=== PATIENT | female | born 1970 | race Caucasian/White ===

== ENCOUNTER 2019-04-23 21:58 | Inpatient (IN) | payer OTHER ==
[2019-04-23 22:13] VITALS: BMI 18.3
[2019-04-24] MEDS ORDERED: Ondansetron ODT 4 MG TAB PO PRN (00:31)
[2019-04-24] MEDS ORDERED: Acetaminophen 500 MG TAB PO PRN ×2 (07:15→07:21)
[2019-04-24] MEDS ORDERED: Meloxicam 7.5 MG TAB PO PRN ×2 (07:15→07:22)
[2019-04-24] MEDS ORDERED: ALPRAZolam 0.5 MG TAB PO PRN (07:15)
[2019-04-24] MEDS: Multivit, Therapeutic 1 TAB PO SCH (08:44)
[2019-04-24] MEDS: Gabapentin 400 MG CAP PO SCH ×2 (08:44→15:13)
[2019-04-24] MEDS: Folic Acid 1 MG TAB PO SCH (08:44)
[2019-04-24] MEDS: Thiamine 100 MG TAB PO SCH (08:44)
[2019-04-24] MEDS ORDERED: PARoxetine 20 MG TAB PO SCH ×2 (09:00)
[2019-04-24] MEDS ORDERED: Gabapentin 400 MG CAP PO SCH (09:00)
[2019-04-24] MEDS: ALPRAZolam 0.5 MG TAB PO PRN ×2 (11:06→21:12)
[2019-04-24] MEDS ORDERED: traZODone HCl 50 MG TAB PO SCH (21:00)
[2019-04-24] MEDS: Gabapentin 300 MG CAP PO SCH (21:13)
[2019-04-24] MEDS: traZODone HCl 50 MG TAB PO SCH (21:13)
[2019-04-25 07:32] LABS: #Basophils 0.1 thou/uL (0.0-0.2); #Eosinphils 0.2 thou/uL (0.0-0.7); #Lymphocytes 2.3 thou/uL (1.20-3.40); #Monocytes 0.5 thou/uL (0.11-0.59); #Neutrophils 3.7 thou/uL (1.40-6.50); %Basophils 0.9 % (0.0-1.0); %Eosinophils 2.5 % (0.0-10.0); %Lymphocytes 33.9 % (21.0-51.0); %Monocytes 7.3 % (0.0-10.0); %Neutrophils 55.4 % (42.0-75.0); Hemoglobin 9.8 g/dL (12.0-16.0); Mean Corpuscular Hemoglobin 33.9 pg (27.0-31.0); Mean Corpuscular Volume 99.7 fL (78.0-98.0); Mean Platelet Volume 6.7 fL (7.4-10.4); Platelet Count 202 thou/uL (130-400); RBC Distribution Width 14.6 % (11.5-14.5); Red Blood Cell (RBC) Count 2.88 mill/uL (4.20-5.40); White Blood Cell (WBC) Count 6.7 thou/uL (4.8-10.8)
[2019-04-25 07:46] LABS: ALT (SGPT) 35 U/L (8-55); AST (SGOT) 36 U/L (5-34); Alkaline Phosphatase 102 U/L (40-150); Anion Gap 15 mmol/L (10-20); BUN (Urea Nitrogen) 6 mg/dL (7.0-18.7); Bilirubin, Total 0.3 mg/dL (0.2-1.2); Calc. Creatinine Clearance 84 mL/min (70-130); Calcium 9.3 mg/dL (7.8-10.44); Carbon Dioxide 24 mmol/L (22-29); Chloride 109 mmol/L (98-107); Estimated GFR-MDRD Greater than 90; Glucose 136 mg/dL (70-105); Potassium 4.4 mmol/L (3.5-5.1); Sodium 144 mmol/L (136-145)
[2019-04-25] MEDS: Thiamine 100 MG TAB PO SCH (09:13)
[2019-04-25] MEDS: Multivit, Therapeutic 1 TAB PO SCH (09:13)
[2019-04-25] MEDS: Gabapentin 300 MG CAP PO SCH ×3 (09:13→20:36)
[2019-04-25] MEDS: Folic Acid 1 MG TAB PO SCH (09:13)
[2019-04-25] MEDS: ALPRAZolam 0.5 MG TAB PO PRN ×2 (09:16→18:04)
[2019-04-25] MEDS: traZODone HCl 50 MG TAB PO SCH (20:36)
[2019-04-26] MEDS: Multivit, Therapeutic 1 TAB PO SCH (08:51)
[2019-04-26] MEDS: Folic Acid 1 MG TAB PO SCH (08:51)
[2019-04-26] MEDS: Thiamine 100 MG TAB PO SCH (08:51)
[2019-04-26] MEDS: Gabapentin 300 MG CAP PO SCH ×3 (08:51→20:45)
[2019-04-26] MEDS: ALPRAZolam 0.5 MG TAB PO PRN ×2 (08:55→17:05)
[2019-04-26] MEDS: traZODone HCl 50 MG TAB PO SCH (20:45)
[2019-04-27] MEDS: Gabapentin 300 MG CAP PO SCH ×3 (08:35→20:47)
[2019-04-27] MEDS: Folic Acid 1 MG TAB PO SCH (08:35)
[2019-04-27] MEDS: ALPRAZolam 0.5 MG TAB PO PRN ×2 (08:36→16:37)
[2019-04-27] MEDS: Multivit, Therapeutic 1 TAB PO SCH (08:36)
[2019-04-27] MEDS: Thiamine 100 MG TAB PO SCH (08:36)
[2019-04-27] MEDS: traZODone HCl 50 MG TAB PO SCH (20:48)
[2019-04-28] MEDS: Thiamine 100 MG TAB PO SCH (08:42)
[2019-04-28] MEDS: ALPRAZolam 0.5 MG TAB PO PRN ×2 (08:42→20:52)
[2019-04-28] MEDS: Gabapentin 300 MG CAP PO SCH ×3 (08:42→20:54)
[2019-04-28] MEDS: Folic Acid 1 MG TAB PO SCH (08:43)
[2019-04-28] MEDS: Multivit, Therapeutic 1 TAB PO SCH (08:43)
[2019-04-28] MEDS: traZODone HCl 50 MG TAB PO SCH (20:53)
[2019-04-29 06:49] VITALS: TEMP 97.2
[2019-04-29] MEDS: Multivit, Therapeutic 1 TAB PO SCH (08:43)
[2019-04-29] MEDS: Thiamine 100 MG TAB PO SCH (08:43)
[2019-04-29] MEDS: Folic Acid 1 MG TAB PO SCH (08:43)
[2019-04-29] MEDS: Gabapentin 300 MG CAP PO SCH ×2 (08:44→14:47)
[2019-04-29] MEDS: ALPRAZolam 0.5 MG TAB PO PRN (08:47)
[2019-04-29 11:00] VITALS: BP 118/68
--- NOTE | 2019-04-29 11:50 | HP ---
PRIMARY CARE PHYSICIAN: 1.Dr Davis/ [place]. CONSULTATIONS: 1. GI, Dr. Santos in [place]. 2. Well Drill Operator, Dr. Hernandez in [place]. REASON FOR ADMISSION: General weakness from recent hospitalization for skilled rehab at [facility]. HISTORY OF PRESENT ILLNESS AND HOSPITAL COURSE: Ms. Teague is a 48-year-old female with past medical history of hematochromatosis, myelodysplastic syndrome, who presents to the hospital with complaints of general weakness at [facility] on 2018. The patient reports that she has mainly been staying in bed due to the general weakness. This is associated with poor appetite and inability to get up or walk. Upon presentation in the hospital, the patient was found to have an elevated CK levels up to 1161 with CK-MB of 225 and myoglobin levels greater than 4000. The patient was subsequently admitted for acute rhabdomyolysis. Along with the above presentation, the patient was also reported to have left hand cellulitis, which was treated with IV clindamycin in the hospital as well. 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 She was also diagnosed with alcoholic neuropathy, hypovolemic, hyponatremia, elevated LFTs. Left hand cellulitis, debility with weakness. The patient's CK levels all trended down prior to discharge. LFTs trended down prior to discharge. IV antibiotic was completed with improved left hand swelling, redness, and pain. Interim history:, 3 weeks prior to recent admission, the patient underwent EGD byDr. Santos and was found to have narrowing of the esophagus and underwent esophageal dilatation. She was also treated on Bactrim for UTI that led to C. diff colitis. She did complete her treatment for the C. diff colitis; however, she continues to have loose stools during this hospitalization that subsequently improved during her recent stay in the hospital. The patient was deemed generally weak to go back home, thus she was referred to [facility] for purposes of skilled rehab for strengthening and gait training prior to going back to the home environment. When admitted ,patient reports back pain. reports that at home she routinely takes 600 mg po TID of gabapentin, requesting to increase her med dose. PAST MEDICAL HISTORY: As mentioned above. Also with history of Depression, anxiety, and chronic insomnia. PAST SURGICAL HISTORY: Esophageal dilatation, ankle surgery, and hysterectomy. SOCIAL HISTORY: Drinks a bottle of wine daily. Denies drugs or tobacco use. FAMILY HISTORY: Mastocytosis in her mother. REVIEW OF SYSTEMS: GENERAL: Reports general weakness, fatigue, loss of appetite, and gradual weight loss. No fever. No chills. HEENT: No acute visual changes, hearing changes, or cold symptoms. RESPIRATORY: No shortness of breath, wheezing, pain with breathing, chronic sputum production. CARDIAC: Denies chest pain, dyspnea on exertion, paroxysmal nocturnal dyspnea, leg swelling and cyanosis. GENITOURINARY: No dysuria, hematuria, frequency, urgency, or incontinence. MUSCULOSKELETAL: Reports chronic low back pain, recent myalgia as per HPI. NEURO: Reports neuropathic pain, recently seen by neurologist. On long-term use of gabapentin. No focal paralysis, seizure, tics, or tremors reported. SKIN: Per HPI. Otherwise, no rashes. No lesions. No nonhealing ulcers. PSYCH: Reports anxiety and depressive symptoms, insomnia, stable with current medications. LABORATORY DATA: Recent lab works/test: On April 23, troponin less than 0.07 on 04/19/2019, alkaline phosphatase 68, ferritin 28, creatine kinase 214, creatine kinase MB 26, ALT 43, AST 44, folate 7.56, B12 of 421. Sodium level 141, potassium level 3.6, glucose 121, BUN 6, creatinine 0.4, GFR 102.6, calcium 8.8, phosphorus 4.7, magnesium 1.6. Albumin 2.5, total bilirubin 0.2. Hemoglobin 9.3, hematocrit 27.1, platelets 168. MEDICATIONS: 1. Acetaminophen 500 mg q.6 p.r.n. 2. Folic acid 1 mg p.o. daily. 3. Gabapentin 300 mg p.o. t.i.d. 4. Meloxicam 7.5 mg p.o. q.a.m. 5. Theragran one tablet p.o. daily. 6. Zofran ODT 4 mg p.o. q.6 hours p.r.n. 7. Pantoprazole 40 mg p.o. daily. 8. Sertraline 100 mg p.o. q.a.m. 9. Thiamine 100 mg p.o. daily. 10. Trazodone 50 mg p.o. one tablet p.o. at bedtime. ALLERGIES: ADHESIVE TAPE, CODEINE, SULFAMETHOXAZOLE-TRIMETHOPRIM SULFATE. PHYSICAL EXAMINATION: VITAL SIGNS: Temperature 97.1, pulse 90, respirations 20, O2 sats 97% on room air, blood pressure 114/70, weight 100 pounds and 5 ounces, height 5 feet 2 inches. GENERAL: The patient is awake, alert, and oriented x3. Built thin, frail- looking, generally weak-looking female, comfortable in bed, not in acute distress. No signs of agony. HEENT: Normocephalic and atraumatic. PERRL. Anicteric sclerae. Oral mucosa is moist. No oral lesions. NECK: Supple with full range of motion. No LAD. CHEST: Normal excursion. Nonlabored breathing. LUNGS: Clear to auscultation bilaterally. CARDIAC: RRR. Normal S1 and S2. No murmurs. ABDOMEN: Flat, soft. Normoactive bowel sounds. Nondistended, nontender. No rebound. No guarding. Negative CVA tenderness bilaterally. EXTREMITIES: Thin, no edema. No cyanosis. No joint effusions, no joint swelling. NEURO: Nonfocal. DTRs 2+. Gait unsteady. ASSESSMENT: 1. Physical deconditioning. 2. General weakness. 3. Acute rhabdomyolysis with improved CK and CK-MB levels. 4. Elevated liver enzymes, improved. 5. Cellulitis of the left hand, treated. 6. Chronic alcohol use. 7. History of myelodysplasia/myelodysplastic syndrome, followed by sexton helper. 8. History of hemochromatosis. 9. Unsteady gait. The patient is admitted to [facility] for skilled rehab. Refer to PT and OT. We will continue all current medications. Librium is not available in this facility. The patient reports no DT's since admission. She has been out of the withdrawal period at this point, since she has been in the hospital for almost a week. We will add anxiolytic p.r.n. We will continue to monitor the patient closely. Routine labs ordered for CBC and CMP. The patient also reports home medications of gabapentin up to 600 mg p.o. t.i.d. The patient is currently on 300 mg p.o. t.i.d. and is complaining inadequate pain control. We will titrate medicine up to her current medication dose. Diet, regular. We will include nutritional supplement with Ensure Enlive. Dietary consult. GI prophylaxis with PPI. DVT prophylaxis with SCD. Estimated length of stay 1 to 2 weeks. CODE STATUS: The patient reports FULL CODE. DISPOSITION: Home once appropriate. Job ID: [id number] MTDD
--- NOTE | 2019-04-29 13:09 | DIS ---
DATE OF ADMISSION: 04/23/2019 DATE OF DISCHARGE: 04/29/2019 PRIMARY CARE PHYSICIAN: Dr. Davis. REASON FOR ADMISSION: Deconditioning, general weakness after recent hospitalization. FINAL DIAGNOSES: 1. Physical deconditioning/general weakness. 2. Acute rhabdomyolysis, improved. 3. Cellulitis of left hand, treated, resolved. 4. Hypovolemic hyponatremia, resolved. 5. Chronic alcohol use. 6. Unsteady gait, improved. 7. Neuropathic pain. likely from alcoholic neuropathy SECONDARY DIAGNOSES: 1. Depression and anxiety. 2. Chronic insomnia. 3. History of myelodysplasia/myelodysplastic syndrome. 4. 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 5. History of esophageal stricture, status post esophagogastroduodenoscopy and esophageal dilatation in March 2009, by Dr Santos. DISPOSITION: Home with spouse. CONDITION ON DISCHARGE: Stable. HOME MEDICATIONS: 1. Folic acid 1 g p.o. daily. 2. Gabapentin 600 mg p.o. t.i.d. 3. Theragran one tablet p.o. daily. 4. Pantoprazole 40 mg p.o. daily. 5. Zoloft 100 mg p.o. q.a.m. 6. Thiamine 100 mg p.o. daily. 7. Trazodone 50 mg p.o. at bedtime. 8. Vitamin B12 1000mcg IM q monthly. DISCHARGE INSTRUCTIONS: 1. Diet: Regular, to continue supplements with Ensure t.i.d. 2. Activity: Ad benjamin. 3. Follow up with PCP Dr. Davis in 1 to 2 weeks, sooner with concern. 4. Follow up with Dr. Santos/GI in 1 to 2 weeks. 5. Follow up with Dr. Hernandez/dusting and brushing machine operator as previously scheduled. HISTORY OF PRESENT ILLNESS AND HOSPITAL COURSE: Ms. Teague is a very pleasant 48-year-old female with significant history of chronic hematochromatosis myelodysplastic syndrome, chronic alcohol use. She was admitted to [facility] on 04/17/2019, secondary to general weakness. She was diagnosed with acute rhabdomyolysis, deemed to be secondary to chronic alcohol use and statin use. The patient was medically treated appropriately in the hospital. At that time, the patient was also noted to have left hand cellulitis, which responded very well with IV clindamycin. Overall CK level, CK-MB level, and myoglobin levels trended down including her liver function tests. When she was deemed hemodynamically stable to be discharged, patient was then very weak to go back home, so she was referred to [facility] for skilled rehab. The patient did well in rehab. She was walking 800 feet prior to discharge with no adaptive device. Her appetite is back to baseline. Overall muscle strength and gait are at baseline. On 04/29/2019, the patient is adamant to go home. Spouse was comfortable taking care of the patient at home at this time. She is recommended to follow up with PCP and other specialists as above. Vital signs prior to discharge; blood pressure 98/60, temperature 97, pulse 93, respirations 14, O2 saturations 96% on room air, weight 100 pounds and 5 ounces, height 5 feet 2 inches. Job ID: [id number] MTDD
== END 2019-04-29 15:04 | disposition home or self-care (01) | DRG 558 ==
LOC: MADMS 21:58
PROVIDERS: ADMIT Family Medicine; ATTEND Family Medicine
DX: M62.82 Rhabdomyolysis (principal); L03.114 Cellulitis of left upper limb; E87.1 Hypo-osmolality and hyponatremia; R53.81 Other malaise; R26.81 Unsteadiness on feet; R94.5 Abnormal results of liver function studies; F32.9 Major depressive disorder, single episode, unspecified; F41.9 Anxiety disorder, unspecified; F51.04 Psychophysiologic insomnia; F10.10 Alcohol abuse, uncomplicated; G62.1 Alcoholic polyneuropathy; Z86.2 Personal history of diseases of the blood and blood-forming organs and certain disorders involving the immune mechanism; Z90.710 Acquired absence of both cervix and uterus; Z79.899 Other long term (current) drug therapy; Z88.5 Allergy status to narcotic agent; Z88.2 Allergy status to sulfonamides; Z88.8 Allergy status to other drugs, medicaments and biological substances; D46.9 Myelodysplastic syndrome, unspecified; E86.1 Hypovolemia
CPT/HCPCS: 36415; 80053; 85025